=== PATIENT | female | born 1995 | race Caucasian/White ===

== ENCOUNTER 2017-06-18 23:11 | Inpatient (IN) | payer OTHER ==
[2017-06-18] MEDS ORDERED: LIDOCAINE HCL 50 ML VIAL PERI PRN (23:35)
[2017-06-18] MEDS ORDERED: OXYTOCIN/DEXTROSE 5%-WATER 30 UNITS/500 ML BAG IV ONE (23:35)
[2017-06-18] MEDS ORDERED: ONDANSETRON HCL/PF 2 MG/ML VIAL IV PRN (23:35)
[2017-06-18] MEDS ORDERED: RINGER'S SOLUTION,LACTATED 1,000 ML IV ONE (23:35)
[2017-06-18] MEDS ORDERED: PENICILLIN G POTASSIUM 5 MILLIONUNT in DEXTROSE 5 % IN WATER 100 ML IV ONE ×2 (23:35)
[2017-06-18 23:49] LABS: Hematocrit 35.5 % (37.0-47.0); Hemoglobin 12.1 gm/dL (12.5-16.0); Mean Corpuscular Hemoglobin 29.7 pg (27-31); Mean Corpuscular Hgb Conc 34.1 g/dl (32-36); Mean Platelet Volume 11.9 fl (6.0-9.5); Neutrophil # 10.7 K/mm3 (1.3-6.0); Neutrophil % 88.7 % (42-75.0); Platelet Count 149 K/mm3 (150-450); Red Blood Count 4.08 M/mm3 (4.2-5.4); Red Cell Distribution Width 13.2 % (11.5-14.0); White Blood Count 12.1 K/mm3 (4.0-10.5)
--- NOTE | 2017-06-19 00:08 | HP ---
Chief Complaint - Chief Complaint Date of Service: 06/18/17 Time of Service: 23:47 Chief Complaint: contractions History of Present Illness: 22 yo at 38 5/7 wks by 28 wk ultrasound and EDC of 06/27/17 presents to [facility] L&D complaining of contractions 06/04. She recently moved here from [place], [place]. This complicated by late and insufficient care. She has only had 2 visits with the first at 28 wks. She denies LOF, vaginal bleeding, trauma, substance abuse, or medical problems with this . - Patient's Past Medical History Patient History - Medical: No pertinent hx Patient History - Cardiac/Respiratory: No pertinent hx Patient History - Cancer: No Hx of Cancer Patient History - Surgical Procedures: No surgical history Patient History - Other: None LMP (females 10-50): unknown - Family History Family History:: no untoward family reactions to anesthesia, no familial bleeding tendencies, no family history of clotting disorders, no family history of premature - Social History Living Situations: significant other Abuse History: No History of abuse Psych History: No pertinent hx Does anyone smoke in the home?: No Smoking Status: Never smoker Alcohol Use: none Drug Use: none - Immunizations Immunizations Up to Date: No Hx Pneumococcal Vaccination: No History of Influenza Vaccine: No Review Of Systems (GEN) - Review of Systems EENTM: Present: No Symptoms Reported Respiratory: Present: No Symptoms Reported Cardiac: Present: No Symptoms Reported Abdominal: Present: Abdominal Pain Genitourinary: Present: No Symptoms Reported Musculoskeletal: Present: No Symptoms Reported Neurological: Present: No Symptoms Reported Skin: Present: No Symptoms Reported Endocrine: Present: No Symptoms Reported Allergies/Adverse Reactions: Allergies Allergy/AdvReac Type Severity Reaction Status Date / Time No Known Allergies Allergy Unverified 06/18/17 23:25 Exam - Exam Constitutional: Present: Alert, Oriented x3, Cooperative, Moderate distress ENT Exam: Present: hearing grossly normal Neck: Present: non-tender Respiratory: Present: lungs clear, normal breath sounds, no respiratory distress Cardiovascular/Chest: Present: normal peripheral pulses, regular rate, rhythm, no edema Abdomen: Present: Normal bowel sounds, soft Extremity: Present: normal range of motion, non-tender, no pedal edema, no calf tenderness Skin Exam: Present: warm/dry Lymphatic: Present: no adenopathy Neurologic: Present: oriented x 3 Appearance: Present: appropriate appearance Eye contact: Present: cooperative Diagnostic Studies: NST - reactive, FHT 130 bpm Assessment/Plan - Assessment/Plan (1) Labor and delivery, indication for care Assessment: Admit for management of labor. Problem: Acute (2) Insufficient care in third trimester Assessment: UDS, CBC, T&S, Obtain old records, Obtain sufficient blood to run panel in case unable to obtain adequate documentation of previous labs. Problem: Acute
[2017-06-19] MEDS ORDERED: BUPIVACAINE HCL/0.9 % NACL/PF 250 ML EP PRN (00:38)
[2017-06-19] MEDS ORDERED: ONDANSETRON HCL/PF 2 MG/ML VIAL IV PRN (00:38)
[2017-06-19] MEDS ORDERED: NALOXONE HCL 1 MG/1 ML SYRG IV PRN (00:38)
[2017-06-19] MEDS ORDERED: BUPIVACAINE HCL/PF 30 ML VIAL EP SCH (00:45)
--- NOTE | 2017-06-19 01:01 | OR ---
Anesthesia Procedure Note - Anesthesia Procedure Note Date of Service: 06/19/17 Narrative: Vital Signs - Last Taken Temp Pulse 101 H 06/19/17 00:40 Resp BP 134/82 06/19/17 00:40 Pulse Ox 99 06/19/17 00:40 06/19/17 00:59 ANESTHESIA PROCEDURE NOTE Date of Procedure: 06/19/2017. Time of procedure: 34. Performed by: Ivan Stokes CRNA Junior Accountant Bookkeeper: None. Preprocedure diagnosis: Active labor. Post procedure diagnosis: Same. Procedure: Insertion of labor epidural. Indications: The patient is a 22 -year-old female in active labor requesting labor epidural for pain management. Findings: See below. Details of the procedure: The patient was placed in a sitting position. DuraPrep as well as Betadine swabs X3 was applied to the patient's back. Patient was then draped in a sterile fashion. Lidocaine 1% was infiltrated to the skin and subcutaneous tissues at the level of the L3-4 interspace. The epidural space was identified using a 18-gauge Tuohy needle with loss-of- resistance technique. Epidural catheter was inserted to a depth of 12 centimeters at skin. Negative test dose was elicited using 3 mL of 1.5% preservative-free lidocaine plus epinephrine 1 200,000. The epidural catheter was then taped and secured in place. A loading dose of 8 mL of 0.25% preservative-free bupivacaine was administered to the epidural catheter after negative aspiration for blood and CSF. EBL: Minimal. Fluids: N/A. Specimen: N/A. Post procedure condition: The patient tolerated the procedure well. No complications were noted. Thank you for this consultation. Ivan Stokes CRNA
[2017-06-19] MEDS: DEXTROSE 5%-LACTATED RINGERS 1,000 ML IV PRN ×2 (01:12→05:21)
[2017-06-19 01:32] LABS: Urine Bilirubin Negative (NEGATIVE); Urine Blood 250 /ul (NEGATIVE); Urine Ketone Large mg/dL (NEGATIVE); Urine Nitrite Negative (NEGATIVE); Urine Protein 30 mg/dL (NEGATIVE); Urine Specific Gravity >=1.030 SP.GR. (1.005-1.010); Urine Urobilinogen Normal (NORMAL)
[2017-06-19 01:34] LABS: Urine Amorphous Sediment Moderate - 2+ (NONE-FEW); Urine Appearance Slightly Cloudy; Urine Bacteria TRACE; Urine Color Dark Yellow; Urine Mucus Moderate - 2+
[2017-06-19 01:45] LABS: Cocaine Ur Negative (NEGATIVE); Urine Barbiturate Negative (NEGATIVE); Urine Benzodiazepines Negative (NEGATIVE); Urine Opiates Negative (NEGATIVE); Urine PCP Negative (NEGATIVE); Urine THC Negative (NEGATIVE)
--- NOTE | 2017-06-19 02:12 | PN ---
Progess Note - Interim Narrative: 06/19/17 02:10 Patient comfortable with epidural Vital signs stable. FHT: 130 baseline, reassuring Contractions q 2-3 min Cervix: 9/90/-2, AROM-moderate meconium Impression: Intrauterine at 38-5/7 weeks in labor. Unknown GBS status -status post penicillin 1 dose; second dose due in the next few minutes. Plan: Notify processing operator of meconium-stained fluid. Anticipate normal spontaneous vaginal delivery within the next couple hours.
[2017-06-19] MEDS: PENICILLIN G POTASSIUM 2.5 MILLIONUNT in DEXTROSE 5 % IN WATER 100 ML IV SCH ×4 (02:43→06:23)
--- NOTE | 2017-06-19 08:23 | OR ---
Operative Report - Dictated Report Narrative: Indication: Moderate meconium-stained fluid, recurrent severe decelerations, prolonged second stage of labor, and maternal exhaustion Pre Procedure Patient was counseled to the risk, benefits, and alternatives to operative vaginal delivery. All questions were answered. Patient consented to proceed with operative vaginal delivery. heart rate interpretation: 150 baseline with recurrent moderate to severe variable decelerations, EFW 3800 g, station +2, Position of head initially was thought to be CLYDE but after one pull with the forceps realized the baby was OP, Anesthesia: epidural Cervix was completely dilated and effaced, maternal- size appropriate for application, bladder was emptied Procedure Escoto/Luikart forceps easily applied, hinge/lock approximated without difficulty, one easy pull with no advancement in station. For this reason the forceps were removed and presentation re-evaluated and noted to be OP. Using my hand, the fetus was rotated counterclockwise to OA and pushed the fetus out on her own within 20 min. Post Procedure Viable female born at 0746 on 06/19/2017 with APGARS of 8 and 9, weighing 96220s over intact perineum with vigorous crying. Moderately thick meconium-stained fluid. Cord clamping delayed 1 minute and 20 seconds. Cord gases not collected, meconium-stained placenta spontaneously delivered, EBL less than 50 mL,, no injury, no shoulder dystocia Lacerations: Bilateral minor periurethral abrasions with no repair needed. History for MU Definition: * The number of deliveries resulting in a live the patient experienced prior to current hospitalization * The previous delivery of live twins or any live multiple gestation is considered one live event. *If primagravida or nulliparous is documented select zero for the number of previous live births. Live Events: 0
[2017-06-19] MEDS ORDERED: HYDROCORTISONE 30 APPL TUBE TP PRN (08:29)
[2017-06-19] MEDS ORDERED: GLYCERIN/WITCH HAZEL LEAF 40 APPL BOX TP PRN (08:29)
[2017-06-19] MEDS ORDERED: OXYTOCIN/DEXTROSE 5%-WATER 30 UNITS/500 ML BAG IV ONE (08:29)
[2017-06-19] MEDS ORDERED: BENZOCAINE/MENTHOL 81 SPRAY CAN TP PRN (08:29)
[2017-06-19] MEDS ORDERED: SENNOSIDES 8.6 MG TABLET PO PRN (08:29)
[2017-06-19] MEDS ORDERED: oxyCODONE HCL/ACETAMINOPHEN 1 TAB TABLET PO PRN (08:29)
[2017-06-19] MEDS ORDERED: BISACODYL 10 MG SUPP.RECT RC PRN (08:29)
[2017-06-19] MEDS: IBUPROFEN 800 MG TABLET PO PRN (11:33)
[2017-06-19 14:26] LABS: Cocaine Ur Negative (NEGATIVE); Urine Barbiturate Negative (NEGATIVE); Urine Benzodiazepines Negative (NEGATIVE); Urine Opiates Negative (NEGATIVE); Urine PCP Negative (NEGATIVE); Urine THC Negative (NEGATIVE)
[2017-06-19] MEDS: DOCUSATE SODIUM 100 MG CAPSULE PO SCH (15:20)
[2017-06-19] MEDS: PRENATAL VITS96/IRON FUM/FOLIC 1 TAB TABLET PO SCH (15:21)
[2017-06-19] MEDS: FERROUS SULFATE 325 MG TABLET PO SCH (17:23)
[2017-06-19] MEDS: oxyCODONE HCL/ACETAMINOPHEN 1 TAB TABLET PO PRN (19:00)
[2017-06-20] MEDS: DOCUSATE SODIUM 100 MG CAPSULE PO SCH ×3 (00:41→21:52)
[2017-06-20] MEDS: PRENATAL VITS96/IRON FUM/FOLIC 1 TAB TABLET PO SCH (10:04)
[2017-06-20] MEDS: oxyCODONE HCL/ACETAMINOPHEN 1 TAB TABLET PO PRN (10:04)
--- NOTE | 2017-06-20 17:19 | PN ---
Subjective - Date and Time Seen Date: 06/20/17 Time: 17:15 Objective - Vitals Vitals: Last Vital Signs Temp 36.3 C L 06/20/17 14:46 Pulse 92 06/20/17 14:46 Resp 18 06/20/17 14:46 BP 151/82 06/20/17 14:46 Pulse Ox 99 06/20/17 14:46 Patient denies complaints. Lochia wnl Abdomen - soft, nontender Uterus - firm, at umbilicus - 1 No calf tenderness Impression: day #1 - s/p spontaneous vaginal delivery. Late/ insufficient care. Rubella Non-immune Plan: Continue routine care. Rubella vaccine prior to d/c home. Cauti Physician Documentation - Urinary Catheter Management Urethral (Delarosa) Date of Insertion: 06/19/17 Time of Insertion: 01:15 Date of Removal: 06/19/17 Time of Removal: 07:20 Assessment/Plan - Problems/Diagnosis (1) Labor and delivery, indication for care Problem: Acute (2) Insufficient care in third trimester Problem: Acute
[2017-06-20] MEDS ORDERED: MEASLES,MUMPS,RUBELLA VACC/PF 0.5 ML VIAL SC ONE (18:00)
[2017-06-20] MEDS: IBUPROFEN 800 MG TABLET PO PRN (18:49)
[2017-06-20] MEDS: FERROUS SULFATE 325 MG TABLET PO SCH (18:50)
[2017-06-21] MEDS: oxyCODONE HCL/ACETAMINOPHEN 1 TAB TABLET PO PRN ×2 (01:01→10:51)
[2017-06-21 07:36] VITALS: BP 121/63
== END 2017-06-21 18:30 | disposition home or self-care (01) | DRG 775 ==
LOC: OBCLINIC 23:11 → OB 23:23
PROVIDERS: ADMIT Obstetrics & Gynecology; ATTEND Obstetrics & Gynecology
PROC: 10E0XZZ Delivery of Products of Conception, External Approach (ICD-10-PCS; principal; 2017-06-19)
PROC: 10907ZC Drainage of Amniotic Fluid, Therapeutic from Products of Conception, Via Natural or Artificial Opening (ICD-10-PCS; 2017-06-19)
PROC: 10S0XZZ Reposition Products of Conception, External Approach (ICD-10-PCS; 2017-06-19)
PROC: 4A1HXCZ Monitoring of Products of Conception, Cardiac Rate, External Approach (ICD-10-PCS; 2017-06-19)
PROC: 00HU33Z Insertion of Infusion Device into Spinal Canal, Percutaneous Approach (ICD-10-PCS; 2017-06-19)
DX: O76 Abnormality in fetal heart rate and rhythm complicating labor and delivery (principal); O75.81 Maternal exhaustion complicating labor and delivery; O63.1 Prolonged second stage (of labor); Z3A.39 39 weeks gestation of pregnancy; Z37.0 Single live birth